=== PATIENT | female | born 1940 | race American Indian/Alaskan Native ===

== ENCOUNTER 2018-08-02 08:29 | Day surgery (SDC) | payer MEDICARE, MEDICAID ==
[2018-07-26 14:24] VITALS: BMI 21.6
[~2018-08-02 08:29] MED LIST: Lidocaine/Epinephrine 1% 1:100000 10 ML IJ ONE; Morphine 10 mg/5 ml Oral Soln PO PRN; ceFAZolin IV 1 gm in Dextrose 1 GM/50 ML BAG IVPB ONE
[2018-08-02] MEDS ORDERED: Dextrose 5%/0.45% NS 1,000 ML IV SCH (08:30)
[2018-08-02] MEDS ORDERED: Propofol 10 mg/ml Inj (20 ML) ONE (10:00)
[2018-08-02] MEDS ORDERED: Midazolam 2 MG/2 ML VIAL ONE (10:00)
[2018-08-02] MEDS ORDERED: Lactated Ringer's 1,000 ML IV SCH (11:00)
[2018-08-02 12:35] VITALS: RESP 16; TEMP 97.8
[2018-08-02 15:18] VITALS: BP 130/70; PULSE 80; O2SAT 97
--- NOTE | 2018-08-02 21:20 | OP ---
PROCEDURE DATE: 08/02/2018 PREOPERATIVE DIAGNOSIS: Hard palate lesion. POSTOPERATIVE DIAGNOSIS: Hard palate lesion. PROCEDURE: Hard palate lesion removal. SIGNIFICANT FINDING: Hard palate lesion. DESCRIPTION OF PROCEDURE: The patient was brought into the room, placed in supine position. Anesthesia was initiated through an ET tube. The patient was draped in the usual manner. A mouth gag was placed into the oral cavity, opened and suspended on the [place] checkering machine adjuster the usual manner. There was a very small ulcer noted in the right anterior aspect of the hard palate. It was injected with lidocaine with epinephrine. There was also a lesion noted posteriorly midline in the hard palate. This was also injected with lidocaine with epinephrine. Sharp dissection was used to remove the lesions. Bleeding was controlled using direct pressure. The mouth gag was taken down and removed. The patient was taken off anesthesia and taken to the recovery room in stable manner. Sher Wiley MD
== END 2018-08-02 12:57 | disposition home or self-care (01) ==
LOC: C.SDS 08:29
PROVIDERS: ATTEND Otolaryngology
DX: K13.79 Other lesions of oral mucosa (principal)
CPT/HCPCS: 11900; 88305; J0690; J2250; J2704